=== PATIENT | female | born 1965 | race Caucasian/White ===

== ENCOUNTER → 2020-08-25 | Outpatient (CLI) | payer OTHER | LOC: MRI 07:54 | PROVIDERS: ATTEND Family Medicine | DX: S06.0X9S Concussion with loss of consciousness of unspecified duration, sequela (principal); R41.3 Other amnesia; X58.XXXS Exposure to other specified factors, sequela ==

== ENCOUNTER → 2020-10-04 | Outpatient (CLI) | payer OTHER ==
[2020-10-04 09:30] LABS: CREATININE 1.1 mg/dL (0.6-1.0)
== END ==
LOC: MRI 08:33 → LAB 08:35
PROVIDERS: ATTEND Family Medicine
DX: S70.12XA Contusion of left thigh, initial encounter (principal); I65.23 Occlusion and stenosis of bilateral carotid arteries; I67.9 Cerebrovascular disease, unspecified; R42 Dizziness and giddiness; R51.9 Headache, unspecified; R22.42 Localized swelling, mass and lump, left lower limb; X58.XXXA Exposure to other specified factors, initial encounter; Y93.89 Activity, other specified; Y92.89 Other specified places as the place of occurrence of the external cause; Y99.8 Other external cause status